=== PATIENT | female | born 1970 | race Caucasian/White ===

== ENCOUNTER 2017-06-20 10:13 | Emergency (ER) | payer MEDICAID ==
--- NOTE | 2017-06-20 11:05 | Emergency Department Record ---
History of Present Illness - General Chief Complaint: Headache Migraine Stated Complaint: HEADACHE Time Seen by Provider: 06/20/17 11:04 Source: Patient Mode of Arrival: Ambulatory - History of Present Illness Initial Comments: leandro has a migraine and seen at [facility] 2 days for the same and she gets migraines frequently about once a week . She sees pain management for back and shoulder. uses percocet and gabapentin Complaint: "Migraine" Onset/Timin -: Days(s) Onset Description: Gradual Location: Diffuse Severity: Moderate Severity scale (1-10): 9 Quality: Aching Consistency: Constant, Intermittent Improves With: Rest Worsens With: Movement of head/neck - Related Data Home Medications Medication Instructions Recorded Confirmed Last Taken Gabapentin [Neurontin] 300 mg PO Q8H 06/20/17 06/20/17 1 Day Ago ~06/19/17 Nabumetone 500 mg PO BID 06/20/17 06/20/17 1 Day Ago ~06/19/17 Oxycodone HCl/Acetaminophen 1 tab PO Q8H PRN 06/20/17 06/20/17 1 Day Ago [Percocet 5mg/325mg] ~06/19/17 Allergies Allergy/AdvReac Type Severity Reaction Status Date / Time codeine AdvReac NAUSEA Verified 06/20/17 10:27 Travel Screening - Travel/Exposure Within Last 30 Days Have you traveled within the last 30 days?: No - Travel/Exposure Within Last Year Have you traveled outside the [place] in the last year?: No - Additonal Travel Details Have you been exposed to anyone with a communicable illness?: No - Travel Symptoms Symptom Screening: None Past Medical History - SOCIAL HISTORY Smoking Status: Former smoker Alcohol Use: Rare Drug Use: None, Rare - RESPIRATORY Hx Respiratory Disorders: No - CARDIOVASCULAR Hx Cardio Disorders: No - NEURO Hx Neuro Disorders: No - GI Hx GI Disorders: No - Hx Genitourinary Disorders: Yes Comment:: Endometriosis - ENDOCRINE Hx Endocrine Disorders: No - MUSCULOSKELETAL Hx Musculoskeletal Disorders: Yes Comment:: pain clinic - PSYCH Hx Psych Problems: No - HEMATOLOGY/ONCOLOGY Hx Hematology/Oncology Disorders: No Family Medical History Any Significant Family History?: Yes Hx Anxiety: Mother Hx Cancer: Grandparents Hx Diabetes: Grandparents Hx Heart Disease: Grandparents Hx HTN: Grandparents Hx Kidney Disease: Grandparents Hx Liver Disease: Grandparents Hx Stroke: Grandparents Course Vital Signs 06/20/17 10:19 Temperature 98.5 F Pulse Rate 83 Respiratory 20 Rate Blood Pressure 155/112 Pulse Ox 98 headache is much better - Reevaluation(s) Reevaluation #1: neuro exam negative 06/20/17 12:06 Medical Decision Making - Lab Data Result diagrams: 06/20/17 11:05 06/20/17 11:05 Disposition Clinical Impression: Migraine Qualifiers: Migraine type: without aura Status migrainosus presence: without status migrainosus Intractability: not intractable Qualified Code(s): G43.009 - Migraine without aura, not intractable, without status migrainosus Disposition: Home, Self-Care Condition: (1) Good Instructions: Migraine Headache (ED) Additional Instructions: continue home meds and use tylenol twice a day as needed Forms: Patient Portal Access Time of Disposition: 12:09 Quality - Quality Measures Quality Measures: N/A - Blood Pressure Screening Does Patient Have Any of the Following: No Blood Pressure Classification: Hypertensive Reading Systolic Measurement: 155 Diastolic Measurement: 112 Screening for High Blood Pressure: < First Hypertensive BP, F/U Documented > [ [id number]] First Hypertensive Follow-up Interventions: Referral to alternative/primary care provider.
[2017-06-20] MEDS: 0.9 % SODIUM CHLORIDE 1,000 ML BAG IV ONE (11:28)
[2017-06-20] MEDS: KETOROLAC 30 MG/ML VIAL IVP ONE (11:29)
[2017-06-20] MEDS: DIPHENHYDRAMINE HCL 50 MG/ML VIAL IVP ONE (11:31)
[2017-06-20] MEDS: METOCLOPRAMIDE HCL 10 MG/2 ML VIAL IVP ONE (11:32)
== END 2017-06-20 12:29 | disposition home or self-care (01) ==
LOC: ER 10:13
DX: G43.009 Migraine without aura, not intractable, without status migrainosus (principal); Z98.890 Other specified postprocedural states
CPT/HCPCS: 99284 ×2; 96374; 96375; J1885; J1200; J2765; J7030